=== PATIENT | male | born 1995 | race Caucasian/White ===

== ENCOUNTER 2021-07-27 22:31 | Emergency (ER) | payer OTHER ==
[2021-07-27 22:47] VITALS: BMI 27.0
[2021-07-27] MEDS ORDERED: LACTATED RINGERS SOLUTION 1000 ML INFUS.BAG IV ONE (23:20)
[2021-07-27 23:40] LABS: BASO % 0.6 % (0-2.0); EOS % 1.2 % (0-4.5); HEMATOCRIT 38.8 % (35.4-49); HEMOGLOBIN 12.6 GM/dL (11.7-16.9); LYMPH % 31.2 % (8-40); MCH 24.1 pg (25.7-33.7); MCHC 32.3 g/dl (32.0-35.9); MEAN CELL VOLUME 74.5 fl (80-96); MEAN PLT VOLUME 8.8 fl (7.5-11.1); MONO % 7.3 % (3.8-10.2); NEUT % 59.7 % (42.8-82.8); PLATELET COUNT 180 10^3/uL (134-434); RBC 5.21 M/mm3 (4.00-5.60); RDW 14.7 % (11.9-15.9)
[2021-07-27 23:56] LABS: EPI CELLS 8 /uL (0-25.1); HYALINE CASTS 1 /uL (0-3.1); PH,URINE 7.5 (5.0-8.0); URINE APPEARANCE CLEAR; URINE BACTERIA 54 /uL (0-1359); URINE BILIRUBIN NEGATIVE (NEGATIVE); URINE COLOR YELLOW; URINE GLUCOSE (UA) NEGATIVE (NEGATIVE); URINE KETONE NEGATIVE (NEGATIVE); URINE LEUK ESTERASE 1+ (NEGATIVE); URINE NITRITE NEGATIVE (NEGATIVE); URINE PROTEIN NEGATIVE (NEGATIVE); URINE RBC 1 /uL (0-23.9); URINE UROBILINOGEN 0.2 mg/dL (0.2-1.0); URINE WBC 66 /uL (0-25.8)
[2021-07-27 23:59] LABS: CHLORIDE 106 mmol/L (98-107); SODIUM 140 mmol/L (136-145)
[2021-07-28 00:02] LABS: ANION GAP 5 MMOL/L (8-16); BLOOD UREA NITROGEN 8.5 mg/dL (7-18); CALCIUM 8.8 mg/dL (8.5-10.1); CO2 29 mmol/L (21-32); COCAINE, UR NEGATIVE (NEGATIVE); GLUCOSE,RANDOM 96 mg/dL (74-106); METHADONE, UR NEGATIVE (NEGATIVE); URINE AMPHETAMINES NEGATIVE (NEGATIVE); URINE BENZODIAZEPINES NEGATIVE (NEGATIVE)
[2021-07-28 00:03] LABS: OPIATES, URI NEGATIVE (NEGATIVE); PHENCYCLIDINE,URINE NEGATIVE (NEGATIVE)
[2021-07-28 00:05] LABS: CREATININE 0.8 mg/dL (0.55-1.3); SGOT/AST 13 U/L (15-37); SGPT/ALT 24 U/L (13-61)
[2021-07-28 00:07] LABS: BILIRUBIN,TOTAL 0.7 mg/dL (0.2-1); TOT PROT 7.5 g/dl (6.4-8.2)
[2021-07-28 00:08] LABS: ALK PHOS 60 U/L (45-117)
[2021-07-28 00:33] LABS: URINE BARBITURATES NEGATIVE (NEGATIVE)
[2021-07-28] MEDS ORDERED: HALOPERIDOL LACTATE 5 MG/ML IV ONE (02:14)
[2021-07-28] MEDS ORDERED: LORazepam 2 MG/ML SDV VIAL IVPUSH ONE (02:14)
[2021-07-28] MEDS ORDERED: HALOPERIDOL LACTATE 5 MG/ML ONE ×2 (02:15→10:46)
[2021-07-28] MEDS ORDERED: LORazepam 2 MG/ML SDV VIAL ONE ×2 (02:15→10:46)
[2021-07-28] MEDS ORDERED: HALOPERIDOL LACTATE 5 MG/ML IM ONE (10:44)
[2021-07-28] MEDS ORDERED: LORazepam 2 MG/ML SDV VIAL IM ONE (10:44)
[2021-07-28 12:53] VITALS: BP 121/70; PULSE 76; TEMP 98.5
== END 2021-07-28 13:00 | disposition home or self-care (01) ==
LOC: JER 22:31
PROC: 3E023GC Introduction of Other Therapeutic Substance into Muscle, Percutaneous Approach (ICD-10-PCS; principal; 2021-07-27)
PROC: 3E033GC Introduction of Other Therapeutic Substance into Peripheral Vein, Percutaneous Approach (ICD-10-PCS; 2021-07-27)
PROC: 3E023GC Introduction of Other Therapeutic Substance into Muscle, Percutaneous Approach (ICD-10-PCS; 2021-07-27)
PROC: 3E033NZ Introduction of Analgesics, Hypnotics, Sedatives into Peripheral Vein, Percutaneous Approach (ICD-10-PCS; 2021-07-27)
PROC: 3E023NZ Introduction of Analgesics, Hypnotics, Sedatives into Muscle, Percutaneous Approach (ICD-10-PCS; 2021-07-27)
DX: F11.20 Opioid dependence, uncomplicated (principal); R45.851 Suicidal ideations
CPT/HCPCS: 36415; 80053; 80307; 81003; 85025; 93005; 93010; 99284-25